=== PATIENT | female | born 1940 | race Caucasian/White ===

== ENCOUNTER 2017-01-12 05:09 | Emergency (ER) | payer OTHER ==
[2017-01-12 05:51] VITALS: BP 153/85; PULSE 73; TEMP 98.7; BMI 28.3
[2017-01-12] MEDS ORDERED: CEPHALEXIN MONOHYDRATE 500 MG CAPSULE (UD) PO ONE (06:35)
[2017-01-12] MEDS ORDERED: CEPHALEXIN MONOHYDRATE 250 MG CAPSULE (FP) ONE (06:38)
--- NOTE | 2017-01-12 06:42 | PDOC ---
History of Present Illness - General Chief Complaint: Bite Stated Complaint: ALLERGIC REACTION Time Seen by Provider: 01/12/17 06:12 History Source: Patient Exam Limitations: No Limitations - History of Present Illness Initial Comments: 01/12/17 06:36 76yo Female patient w/ PmHx: HTN presents to ED c/o insect bites to BLE. Patient states she was at a barbecue over the weekend, and woke up with swollen red bites to BLE posterior. Patient has been using benadryl po and cortizone cream for itching. She denies any other complaints at this time. Timing/Duration: reports: yesterday Severity: Yes: moderate Location: reports: extremities Respiratory Risk Factors: reports: insect bite Modifying Factors: improves with: antihistamine, topical steriods Associated Symptoms: reports: change in skin texture. denies: denies symptoms, blisters, edema, fever, flushing, headache, hives, jaundice, malaise, nasal congestion, numbness, pallor, paresthesia, petechiae, rash, sore throat, swelling/mass/lumps, tingling, other Past History - Travel Traveled outside of the country in the last 30 days: No Close contact w/someone who was outside of country & ill: No - Past Medical History Allergies/Adverse Reactions: Allergies Allergy/AdvReac Type Severity Reaction Status Date / Time No Known Drug Allergies Allergy Verified 01/12/17 05:37 Home Medications: Ambulatory Orders Aspirin [ASA -] 81 mg PO DAILY 12/08/13 FA/Mv,Ca,Iron,Min/Lycopene/Lut [Centrum Tablet] 1 each PO 12/08/13 Metoprolol Succinate [Toprol XL -] 25 mg PO DAILY 12/08/13 Vitamin E 400 unit PO DAILY 12/08/13 Hydrocodone Bit/Acetaminophen [Vicodin 5-300mg -] 1 - 2 tab PO Q6H #30 tab 12/15 Hydrocodone/Acetaminophen [Vicodin 5-300 mg Tablet] 1 each PO PRN PRN #0 tablet 12/15/13 Cephalexin [Keflex] 500 mg PO TID #21 capsule 01/12/17 Anemia: Yes Asthma: Yes Cancer: Yes Cardiac Disorders: Yes (AORTIC ANEURYSM) CVA: No COPD: Yes CHF: No Dementia: No Diabetes: No GI Disorders: No Disorders: No HTN: Yes Hypercholesterolemia: No Liver Disease: No Seizures: No Thyroid Disease: No - Surgical History Abdominal Surgery: No Appendectomy: No Cardiac Surgery: Yes (AORTIC ANEURYSM REPAIR) Cholecystectomy: No Lung Surgery: No Neurologic Surgery: No Orthopedic Surgery: No - Psycho/Social/Smoking Cessation Hx Suicidal Ideation: No Smoking History: Never smoked Have you smoked in the past 12 months: No If you are a former smoker, when did you quit?: 2003 Information on smoking cessation initiated: No Hx Alcohol Use: No Drug/Substance Use Hx: No Substance Use Type: None Hx Substance Use Treatment: No Review of Systems - Review of Systems Able to Perform ROS?: Yes Is the patient limited Azeri proficient: No Constitutional: No: Fever Integumentary: Yes: Erythema, Lumps, Pruritus All Other Systems: Reviewed and Negative *Physical Exam - Vital Signs Last Vital Signs Temp Pulse Resp BP Pulse Ox 98.7 F 73 18 153/85 100 01/12/17 05:38 01/12/17 05:38 01/12/17 05:38 01/12/17 05:38 01/12/17 05:38 - Physical Exam General Appearance: Yes: Nourished, Appropriately Dressed, Mild Distress. No: Apparent Distress, Moderate Distress, Severe Distress Neck: positive: Trachea midline, Supple. negative: Stridor, Lymphadenopathy (R) , Lymphadenopathy (L), Tender lateral, Tender midline Respiratory/Chest: positive: Lungs Clear, Normal Breath Sounds. negative: Chest Tender, Respiratory Distress, Accessory Muscle Use, Labored Respiration, Rapid RR Cardiovascular: positive: Regular Rhythm, Regular Rate Musculoskeletal: positive: Normal Inspection. negative: CVA Tenderness, Decreased Range of Motion, Vertebral Tenderness Extremity: positive: Normal Capillary Refill, Normal Range of Motion, Erythema, Inflammation, Other (numreous areas of swelling to bilateral lower extremity, posterior knees, and left lateral leg have concentrated areas of increased swelling. Mild tenderness on examination.). 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 Denise this week for further evaluation. Symptoms should improve by then. Apply cool compress to affected area as needed for symptoms management of itching, swelling. Benadryl as directed. Wear long sleeved clothing and pants until symptoms improve. Return if symptoms worsen, fever, or any other complaints at this time. Print Language: GREEK
== END 2017-01-12 07:07 | disposition home or self-care (01) ==
LOC: JER 05:09
DX: S80.862A Insect bite (nonvenomous), left lower leg, initial encounter (principal); S80.861A Insect bite (nonvenomous), right lower leg, initial encounter; L08.9 Local infection of the skin and subcutaneous tissue, unspecified; W57.XXXA Bitten or stung by nonvenomous insect and other nonvenomous arthropods, initial encounter; Y93.89 Activity, other specified; Y92.89 Other specified places as the place of occurrence of the external cause; Y99.8 Other external cause status
CPT/HCPCS: 99281-25